=== PATIENT | male | born 1935 | race Caucasian/White ===

== ENCOUNTER 2016-12-29 16:53 | Observation (INO) | payer MEDICARE, OTHER ==
[2016-12-29 17:22] LABS: BASOPHILS 0.5 % (0.0-2.0); EOSINOPHILS 3.2 % (0.0-6.0); EOSINOPHILS# 0.2 X 10^3uL (0.0-0.4); HEMATOCRIT 46.2 % (42.0-54.0); HEMOGLOBIN 16.3 g/dL (14.0-18.0); LYMPHOCYTES 31.7 % (20.0-40.0); LYMPHOCYTES# 2.4 X 10^3uL (0.8-3.8); MEAN CELL VOLUME 94.2 fL (80.0-100.0); MEAN CORPUS. HGB CONCENTRATION 35.2 g/dL (32.0-36.0); MEAN CORPUSCULAR HEMOGLOBIN 33.2 pg (29.0-35.0); MEAN PLATELET VOLUME 8.9 fL (7.4-10.4); MONOCYTES 7.6 % (2.0-10.0); MONOCYTES# 0.6 X 10^3uL (0.2-1.0); NEUTROPHILS# 4.5 X 10^3uL (2.6-6.7); PLATELET COUNT 195 X 10^3uL (130-440); RED BLOOD COUNT 4.91 X 10^6uL (4.20-6.10); RED CELL DISTRIBUTION WIDTH 13.6 % (11.5-14.5); WHITE BLOOD COUNT 7.7 X 10^3uL (3.9-10.7)
[2016-12-29 17:33] LABS: A/G RATIO 1.4; ALBUMIN 4.6 g/dL (3.5-5.0); ALKALINE PHOSPHATASE 88 U/L (38-126); ALT 52 U/L (21-72); AST 36 U/L (17-59); BILIRUBIN, TOTAL 1.2 mg/dL (0.2-1.3); BLOOD UREA NITROGEN 21 mg/dL (9-20); CALCIUM 10.2 mg/dL (8.4-10.2); CHLORIDE 101 mmol/L (98-107); GLUCOSE 142 mg/dL (70-100); POTASSIUM 3.6 mmol/L (3.5-5.1); SODIUM 138 mmol/L (137-145); TOTAL PROTEIN 7.9 g/dL (6.3-8.2)
[2016-12-29 17:46] LABS: TROPONIN I < 0.012 ng/mL (0.00-0.034)
--- NOTE | 2016-12-29 18:31 | CT REPORT ---
HISTORY: Trauma COMPARISON: None. TECHNIQUE: Axial non-contrast images obtained from skull vertex through foramen magnum. Dose reduction technique was utilized. FINDINGS: BRAIN: There is age related atrophy and decreased attenuation in the periventricular white matter consistent with chronic small vessel ischemic change. No acute intracranial hemorrhage. No mass effect or hyd rocephalus. There is no CT evidence of infarction. BONES AND EXTRACRANIAL SOFT TISSUES: The orbits are unremarkable. The paranasal sinuses and mastoid air cells are clear. The calvarium is intact. IMPRESSION: 1. No acute intracranial abnormality. 2. Age related atrophy and sequela of chronic microvascular ischemia. Final Electronic Signature: This report was electronically signed by Tenzin Guevara MD on 12/29/2016 6:29 PM. bernardo /
[2016-12-29] MEDS ORDERED: ONDANSETRON HCL 4 MG/2 ML VIAL ONE ×2 (18:49→23:18)
[2016-12-29] MEDS ORDERED: NORMAL SALINE 1,000 ML IV ONE (18:50)
[2016-12-29] MEDS ORDERED: POLYETHYLENE GLYCOL 3350 17 GM POWD.PACK PO PRN (21:52)
[2016-12-29] MEDS ORDERED: HOME MEDICATION LIST NEEDED 1 EA EACH MISC ONE (21:52)
[2016-12-29] MEDS ORDERED: ACETAMINOPHEN 325 MG TABLET PO PRN (21:52)
[2016-12-29] MEDS ORDERED: MAG-AL PLUS XS SUSP 30 ML UDC PO PRN (21:52)
--- NOTE | 2016-12-29 22:21 | ER NURSING DOCUMENTATION ---
Nurse's Notes [facility] Name:Jairo Pederson Jr Age:81 yrs Sex:Male :1935 Arrival Date:12/29/2016 Time:16:53 Bed3 Private MD:Bhavin Davis Diagnosis:Dizziness - Vertigo Presentation: 12/29 17:00 Presenting complaint: Patient states: Sudden onset of nausea and vomiting. Transition lp of care: Home. Notified ED Physician of Dr. Harris notified. 17:00 Acuity: BLAYNE 3 lp 17:00 Method Of Arrival: EMS: 410 lp Triage Assessment: 19:49 General: Appears in no apparent distress, Behavior is appropriate for age. GI: Reports. bw2 Historical: - Allergies: No known drug Allergies; No known drug Allergies; - Home Meds: 1. paroxetine HCl oral 2. levothyroxine oral 3. Vytorin 10-10 oral - PMHx: HYPERTENSION; HIGH CHOLESTEROL; HYPOTHYROIDISM; DEPRESSION; Facial Laceration (December 01, 2015); - PSHx: VASECTOMY; Open Heart Surgery; HERNIA REPAIR; SHOULDER SURGERY; Back Surgery; - Tetanus: < 10 years. - Ebola Screening: : Patient negative for fever greater than or equal to 101.5 degrees Fahrenheit, and additional compatible Ebola Virus Disease symptoms. Patient denies exposure to infectious person. Patient denies travel to an Ebola-affected area in the 21 days before illness onset. . - Immunization history: Pneumococcal vaccine is up to date, Flu Vaccine < 1 year. - Social history: Smoking status: Patient states was never smoker of tobacco. Screenin:48 Infectious Disease Risk None. Abuse screen: Denies threats or abuse. Nutritional bw2 screening: No deficits noted. Assessment: 19:47 See Triage Assessment done by same RN. Pain: Denies pain. GI: Abdomen is flat. bw2 Vital Signs: 17:18 Pulse 48; Resp 16; Temp 98.7; Pulse Ox 91% on R/A; lp 17:25 BP 149 / 60; Weight 74.84 kg; Height 5 ft. 11 in. (180.34 cm); lp 19:46 BP 133 / 60; Pulse 59; Resp 18; Temp 98; Pulse Ox 95% ; bw2 22:20 BP 128 / 62; Pulse 51; Resp 17; Pulse Ox 99% ; bw2 17:25 Body Mass Index 23.01 (74.84 kg, 180.34 cm) lp ED Course: 16:54 Patient arrived in ED. ama 16:54 Bhavin Davis is Private Physician. ama 17:00 Loli Marie RN is Primary Nurse. lp 17:01 Triage completed. lp 17:06 Silvestre Harris MD is Attending Physician. tl1 19:33 Angelo Hare MD is Admitting Physician. tl1 19:48 Valuables Remains with patient. bw2 Administered Medications: 17:45 Drug: NS 0.9% 500 ml; Route: IV; Rate: bolus; Site: right antecubital; lp 18:44 Follow up: Response: No adverse reaction; IV Status: Completed infusion; IV Intake: lp 500ml 18:42 Drug: Zofran 4 mg; Route: IVP; Infused Over: 2 mins; Site: right antecubital; lp 21:26 Follow up: Response: No adverse reaction bw2 Intake: 18:44 IV: 500ml; Total: 500ml. lp Outcome: 19:35 Decision to Admit by Provider. tl1 22:20 Admitted to Med/surg accompanied by nurse, via stretcher. bw2 22:20 Condition: good 22:20 Discharge Assessment: Patient awake, alert and oriented x 3. No cognitive and/or functional deficits noted. Patient verbalized understanding of disposition instructions. 22:20 Instructed on need to admit Demonstrated understanding of instructions. 22:20 Patient left the ED. bw2 Signatures: Loli Marie RN RN Unique Griffin Ricardo Rosa, Reg Reg Silvestre Garg MD MD tl1 Penny Rios bw2
[2016-12-29] MEDS: ONDANSETRON HCL 4 MG/2 ML VIAL IV PRN (23:14)
[2016-12-29] MEDS: NORMAL SALINE 1,000 ML IV SCH (23:14)
[2016-12-29] MEDS: MECLIZINE HCL 12.5 MG TABLET PO SCH (23:50)
[2016-12-30] MEDS: ONDANSETRON HCL 4 MG/2 ML VIAL IV PRN ×2 (03:48→10:23)
[2016-12-30] MEDS: NORMAL SALINE 1,000 ML IV SCH (04:03)
[2016-12-30 04:07] LABS: URINE MUCUS NONE SEEN (Up to 25%); URINE RBC NONE SEEN (0-5/hpf)
[2016-12-30 04:08] LABS: URINE APPEARANCE CLEAR; URINE BILIRUBIN NEGATIVE (NEGATIVE); URINE COLOR DARK YELLOW; URINE GLUCOSE NORMAL (NEGATIVE); URINE KETONE 10mg/dL (1+) (NEGATIVE); URINE LEUKOCYTE ESTERASE NEGATIVE (NEGATIVE); URINE NITRITE NEGATIVE (NEGATIVE); URINE PROTEIN NEGATIVE (NEG - TRACE); URINE UROBILINOGEN 0.2mg/dL (Normal) (NEG-1mg/dL)
[2016-12-30 04:09] LABS: URINE BACTERIA NONE SEEN (<10/hpf); URINE BLOOD NEGATIVE (NEGATIVE); URINE SPERM NONE SEEN; URINE SQUAMOUS EPITHELIAL CELL 0-5/hpf (<= 15/hpf); URINE WBC 0-4/hpf (0-4/hpf)
[2016-12-30] MEDS: LEVOTHYROXINE 100 MCG TABLET PO SCH (05:55)
[2016-12-30] MEDS: MECLIZINE HCL 12.5 MG TABLET PO SCH ×4 (05:55→22:53)
[2016-12-30 07:05] LABS: ALBUMIN 3.7 g/dL (3.5-5.0); ALKALINE PHOSPHATASE 52 U/L (38-126); ALT 48 U/L (21-72); AST 28 U/L (17-59); BILIRUBIN, TOTAL 1.2 mg/dL (0.2-1.3); BLOOD UREA NITROGEN 15 mg/dL (9-20); CALCIUM 9.2 mg/dL (8.4-10.2); CHLORIDE 104 mmol/L (98-107); GLUCOSE 105 mg/dL (70-100); POTASSIUM 4.2 mmol/L (3.5-5.1); SODIUM 140 mmol/L (137-145); TOTAL PROTEIN 6.7 g/dL (6.3-8.2)
[2016-12-30 07:32] LABS: BASOPHILS 0.1 % (0.0-2.0); EOSINOPHILS 0.4 % (0.0-6.0); HEMOGLOBIN 14.6 g/dL (14.0-18.0); LYMPHOCYTES 12.8 % (20.0-40.0); LYMPHOCYTES# 0.9 X 10^3uL (0.8-3.8); MEAN CELL VOLUME 94.5 fL (80.0-100.0); MEAN CORPUS. HGB CONCENTRATION 34.9 g/dL (32.0-36.0); MONOCYTES 6.1 % (2.0-10.0); MONOCYTES# 0.4 X 10^3uL (0.2-1.0); NEUTROPHILS 80.6 % (54.0-75.0); NEUTROPHILS# 5.8 X 10^3uL (2.6-6.7); PLATELET COUNT 145 X 10^3uL (130-440); RED BLOOD COUNT 4.44 X 10^6uL (4.20-6.10); RED CELL DISTRIBUTION WIDTH 13.7 % (11.5-14.5); WHITE BLOOD COUNT 7.1 X 10^3uL (3.9-10.7)
[2016-12-30] MEDS: MELOXICAM 7.5 MG TABLET PO SCH (08:26)
[2016-12-30] MEDS: PAROXETINE HCL 20 MG TABLET PO SCH (08:26)
[2016-12-30] MEDS ORDERED: LORazepam 2 MG/ML INJ IV PRN (11:10)
--- NOTE | 2016-12-30 11:23 | PROGRESS NOTE: IM APSO ---
Assessment and Plan - Date of Encounter Date of Encounter: 12/30/16 (1) Vertigo Status: Acute Assessment and plan: Etiology unclear. Likely benign positional vertigo considering intermittent nature and movement/positional component. Less likely viral labyrinthitis without recent URI and with waxing and waning intensity. Likewise, less likely CVA considering negative neurologic examination and intermittent nature of symptoms. CT scan negative. If not improving, may need MRI scan tomorrow morning. Will start aspirin at this time. Continue meclizine but increase to 25 milligrams. Zofran. Add low-dose lorazepam IV considering refractory nausea and vomitingand poor tolerance of Phenergan. Continue neurologic checks. Physical therapy in the morning. Current Visit: Yes (2) Nausea and vomiting Status: Acute Assessment and plan: See above. Current Visit: Yes (3) Mental status change Status: Acute Assessment and plan: Last night. In association with Phenergan use. Resolved as of this morning. No focal neurologic changes. Laboratory studies relatively unremarkable. Follow clinically. Current Visit: Yes (4) Hypertension, benign Status: Chronic Assessment and plan: Holding metoprolol for now considering bradycardia and dizziness issues. Current Visit: Yes (5) Hypercholesterolemia Status: Chronic Current Visit: Yes (6) Hypothyroidism (acquired) Status: Chronic Current Visit: Yes (7) Anxiety Status: Chronic Assessment and plan: At baseline. Approximately. Low-dose lorazepam considering vertigo, nausea, vomiting. Watch for sedation and confusion. Current Visit: Yes (8) DVT prophylaxis Status: Acute Assessment and plan: Lovenox. Current Visit: Yes - Time Spent With Patient Total time spent with greater than 50% in coordination of care (as documented) at patient's floor/unit and/or counseling patient: 25 - 35 minutes Estimated anticipated discharge: Tomorrow. IM: PN Subjective General: anxiety (Baseline), no fever, no chills HEENT: other (vertigo with position change, sitting (better)), no visual changes , no headache Cardiovascular: dizziness, no chest pain, no palpitations Respiratory: no cough, no SOB Gastrointestinal: nausea, vomiting, no abdominal pain Genitourinary: dysuria (mild) Musculoskeletal: weakness (bilateral shoulders, baseline), no pain Integumentary: no rashes Neurological: limb weakness (bilateral shoulders, baseline), no headache, no numbness, no tingling IM: PN Objective Exam - I&O/Vital Signs I&O: Intake & Output 12/29/16 12/30/16 12/30/16 21:59 05:59 13:59 Intake Total 900 Output Total 400 Balance 500 Weight 73.5 kg Intake: IV 900 Right Antecubital 900 Output: Urine 400 Other: Voiding Method Urinal Urinal # Voids 1 Vital Signs: Last Vital Signs Temp 36.6 C 12/30/16 10:00 Pulse 53 L 12/30/16 10:00 Resp 12 12/30/16 10:00 BP 141/74 12/30/16 10:00 Pulse Ox 94 12/30/16 11:06 Oxygen Flow Rate 1 Oxygen Delivery Method Nasal Cannula - Constitutional General appearance: Present: thin. Absent: acute distress - Head Head exam: Present: atraumatic - Eye Eye exam: Present: EOMI, PERRL. Absent: scleral icterus - ENT ENT exam: Present: mucous membranes dry - Neck Neck exam: Present: full ROM - Respiratory Respiratory exam: Present: decreased breath sounds (mild), CTAB. Absent: rales , rhonchi, wheezes - Cardiovascular Cardiovascular exam: Present: bradycardia (mild), systolic murmur. Absent: S3, S4 - GI/Abdominal GI/Abdominal exam: Present: normal bowel sounds, soft. Absent: organomegaly, rebound, rigid, tenderness - Neurological Exam Neurological exam: Present: motor sensory deficit (bilateral shoulders weak ( baseline)), oriented X3, other (light touch intact, vertigo with sitting (no nystagmus)) - Psychiatric Psychiatric exam: Absent: anxious, depressed - Skin Skin exam: Absent: rash - Allied Health Notes Allied health notes reviewed: nursing - Lab Labs: Laboratory Last Values WBC 7.1 X 10^3uL (3.9-10.7) 12/30/16 05:00 RBC 4.44 X 10^6uL (4.20-6.10) 12/30/16 05:00 Hgb 14.6 g/dL (14.0-18.0) 12/30/16 05:00 Hct 42.0 % (42.0-54.0) 12/30/16 05:00 MCV 94.5 fL (80.0-100.0) 12/30/16 05:00 MCH 33.0 pg (29.0-35.0) 12/30/16 05:00 MCHC 34.9 g/dL (32.0-36.0) 12/30/16 05:00 RDW 13.7 % (11.5-14.5) 12/30/16 05:00 Plt Count 145 X 10^3uL (130-440) 12/30/16 05:00 MPV 9.0 fL (7.4-10.4) 12/30/16 05:00 Neutrophils % 80.6 % (54.0-75.0) H 12/30/16 05:00 Lymphocytes % 12.8 % (20.0-40.0) L 12/30/16 05:00 Eosinophils % 0.4 % (0.0-6.0) 12/30/16 05:00 Basophils % 0.1 % (0.0-2.0) 12/30/16 05:00 Neutrophils # 5.8 X 10^3uL (2.6-6.7) 12/30/16 05:00 Lymphocytes # 0.9 X 10^3uL (0.8-3.8) 12/30/16 05:00 Monocytes 6.1 % (2.0-10.0) 12/30/16 05:00 Monocytes # 0.4 X 10^3uL (0.2-1.0) 12/30/16 05:00 Eosinophils # 0.0 X 10^3uL (0.0-0.4) 12/30/16 05:00 Basophils # 0.0 X 10^3uL (0.0-0.1) 12/30/16 05:00 PT 14.8 sec (13.0-16.6) 12/29/16 14:14 D-Dimer 325 ng/mL H* 12/29/16 14:14 Sodium 140 mmol/L (137-145) 12/30/16 05:00 Potassium 4.2 mmol/L (3.5-5.1) 12/30/16 05:00 Chloride 104 mmol/L (98-107) 12/30/16 05:00 Carbon Dioxide 26 mmol/L (22-30) 12/30/16 05:00 BUN 15 mg/dL (9-20) 12/30/16 05:00 Creatinine 0.7 mg/dL (0.7-1.3) 12/30/16 05:00 GFR Calculation Not Reportable 12/30/16 05:00 Glucose 105 mg/dL (70-100) H 12/30/16 05:00 Calcium 9.2 mg/dL (8.4-10.2) 12/30/16 05:00 Total Bilirubin 1.2 mg/dL (0.2-1.3) 12/30/16 05:00 Direct Bilirubin 0.0 mg/dL (0.0-0.4) 12/30/16 05:00 AST 28 U/L (17-59) 12/30/16 05:00 ALT 48 U/L (21-72) 12/30/16 05:00 Alkaline Phosphatase 52 U/L (38-126) 12/30/16 05:00 Troponin I < 0.012 ng/mL (0.00-0.034) 12/29/16 14:14 Total Protein 6.7 g/dL (6.3-8.2) 12/30/16 05:00 Albumin 3.7 g/dL (3.5-5.0) 12/30/16 05:00 Albumin/Globulin Ratio 1.4 12/29/16 14:14 Urine Color Dark yellow A 12/30/16 03:39 Urine Appearance Clear 12/30/16 03:39 Urine pH 7.0 (5-7) 12/30/16 03:39 Ur Specific Carlyle 1.020 (0.001-1.035) 12/30/16 03:39 Urine Protein Negative (NEG - TRACE) 12/30/16 03:39 Urine Ketones 10mg/dl (1+) (NEGATIVE) A 12/30/16 03:39 Urine Blood Negative (NEGATIVE) 12/30/16 03:39 Urine Nitrate Negative (NEGATIVE) 12/30/16 03:39 Urine Bilirubin Negative (NEGATIVE) 12/30/16 03:39 Urine Urobilinogen 0.2mg/dl (normal) (NEG-1mg/dL) 12/30/16 03:39 Ur Leukocyte Esterase Negative (NEGATIVE) 12/30/16 03:39 Urine RBC None seen (0-5/hpf) 12/30/16 03:39 Urine WBC 0-4/hpf (0-4/hpf) 12/30/16 03:39 Ur Squamous Epith Cells 0-5/hpf (<= 15/hpf) 12/30/16 03:39 Urine Bacteria None seen (<10/hpf) 12/30/16 03:39 Urine Mucus None seen (Up to 25%) 12/30/16 03:39 Urine Sperm None seen 12/30/16 03:39 Urine Glucose Normal (NEGATIVE) 12/30/16 03:39 Quality Questions - VTE Prophylaxis Assessment VTE Present on Admission?: No Patient at risk for venous thromboembolism?: Yes VTE Risk Level: High Risk Pharmaceutical VTE prophylaxis contraindication reason: N/A- VTE prophylaxsis ordered Mechanical VTE prophylaxis contraindication reason: not indicated (2) Nausea and vomiting Qualifiers: Vomiting type: unspecified Vomiting Intractability: intractable Qualified Code(s): R11.2 - Nausea with vomiting, unspecified (3) Mental status change Qualifiers: Altered mental status type: delirium Qualified Code(s): R41.0 - Disorientation, unspecified
[2016-12-30] MEDS ORDERED: NORMAL SALINE 1,000 ML IV SCH (11:30)
[2016-12-30] MEDS: ENOXAPARIN SODIUM 40 MG/0.4 ML SYR SUBCUT SCH (12:45)
[2016-12-30] MEDS ORDERED: ATORVASTATIN CALCIUM 10 MG TABLET PO SCH (21:00)
[2016-12-30] MEDS: ATORVASTATIN CALCIUM 10 MG TABLET PO SCH (21:08)
[2016-12-30] MEDS ORDERED: MECLIZINE HCL 12.5 MG TABLET PO ONE (23:04)
[2016-12-31] MEDS: LEVOTHYROXINE 100 MCG TABLET PO SCH (06:16)
[2016-12-31] MEDS: MECLIZINE HCL 12.5 MG TABLET PO SCH ×4 (06:16→22:38)
[2016-12-31] MEDS ORDERED: MECLIZINE HCL 12.5 MG TABLET PO ONE (06:22)
[2016-12-31] MEDS: ENOXAPARIN SODIUM 40 MG/0.4 ML SYR SUBCUT SCH (08:58)
[2016-12-31] MEDS: PAROXETINE HCL 20 MG TABLET PO SCH (08:58)
[2016-12-31] MEDS: MELOXICAM 7.5 MG TABLET PO SCH (08:58)
[2016-12-31] MEDS ORDERED: MELOXICAM 7.5 MG TABLET PO SCH (09:00)
[2016-12-31] MEDS ORDERED: PAROXETINE HCL 20 MG TABLET PO SCH (09:00)
[2016-12-31] MEDS ORDERED: LEVOTHYROXINE 100 MCG TABLET PO SCH (09:00)
--- NOTE | 2016-12-31 19:26 | PROGRESS NOTE: IM APSO ---
Assessment and Plan - Date of Encounter Date of Encounter: 12/31/16 (1) Nausea and vomiting Status: Acute Assessment and plan: This is now resolved. Current Visit: Yes (2) Vertigo Status: Acute Assessment and plan: This 81-year-old gentleman who lives alone had sudden onset of vertigo with nausea and vomiting 2 days ago when he suddenly stood up. He is much better today, but he still has some significant unsteadiness with turns while ambulating according to the physical therapist. She felt that he was not safe to go home yet and should be given another day. I agree and am hopeful that by tomorrow he will be stable enough to ambulate safely with a walker. I advanced his diet. Current Visit: Yes - Time Spent With Patient Total time spent with greater than 50% in coordination of care (as documented) at patient's floor/unit and/or counseling patient: Estimated anticipated discharge: Tomorrow. IM: PN Subjective General: anxiety (Baseline), no fever, no chills HEENT: no visual changes, no headache Cardiovascular: dizziness (only when turning while ambulating), no chest pain, no palpitations Respiratory: no cough, no SOB Gastrointestinal: no abdominal pain, no nausea, no vomiting Musculoskeletal: weakness (bilateral shoulders, baseline), no pain Integumentary: no rashes Neurological: limb weakness (bilateral shoulders, baseline), no headache, no numbness, no tingling IM: PN Objective Exam - I&O/Vital Signs I&O: Intake & Output 12/31/16 12/31/16 12/31/16 05:59 13:59 21:59 Intake Total 1320 350 Output Total 525 Balance 795 350 Weight 74.5 kg Intake: IV 970 Right Antecubital 970 Oral 350 350 Output: Urine 525 Other: Urine Appearance Clear Clear Urine Color Yellow Yellow Voiding Method Urinal Urinal # Voids 2 Vital Signs: Last Vital Signs Temp 36.9 C 12/31/16 15:00 Pulse 56 L 12/31/16 15:00 Resp 12 12/31/16 15:00 BP 144/75 12/31/16 15:00 Pulse Ox 95 12/31/16 15:00 Oxygen Flow Rate 1 Oxygen Delivery Method Nasal Cannula - Constitutional General appearance: Present: average body habitus. Absent: acute distress - Head Head exam: Present: atraumatic - Eye Eye exam: Present: EOMI, PERRL. Absent: scleral icterus - ENT ENT exam: Present: mucous membranes dry, mucous membranes moist - Neck Neck exam: Present: full ROM - Respiratory Respiratory exam: Present: decreased breath sounds (mild), CTAB. Absent: rales , rhonchi, wheezes - Cardiovascular Cardiovascular exam: Present: bradycardia (mild), systolic murmur. Absent: S3, S4 - GI/Abdominal GI/Abdominal exam: Present: normal bowel sounds, soft. Absent: organomegaly, rebound, rigid, tenderness - Extremities Exam Extremities exam: Absent: edema - Neurological Exam Neurological exam: Present: motor sensory deficit (bilateral shoulders weak ( baseline)), oriented X3, other (No vertigo with sitting (no nystagmus)) - Psychiatric Psychiatric exam: Absent: anxious, depressed - Skin Skin exam: Absent: rash - Allied Health Notes Allied health notes reviewed: nursing - Lab Labs: Laboratory Last Values WBC 7.1 X 10^3uL (3.9-10.7) 12/30/16 05:00 RBC 4.44 X 10^6uL (4.20-6.10) 12/30/16 05:00 Hgb 14.6 g/dL (14.0-18.0) 12/30/16 05:00 Hct 42.0 % (42.0-54.0) 12/30/16 05:00 MCV 94.5 fL (80.0-100.0) 12/30/16 05:00 MCH 33.0 pg (29.0-35.0) 12/30/16 05:00 MCHC 34.9 g/dL (32.0-36.0) 12/30/16 05:00 RDW 13.7 % (11.5-14.5) 12/30/16 05:00 Plt Count 145 X 10^3uL (130-440) 12/30/16 05:00 MPV 9.0 fL (7.4-10.4) 12/30/16 05:00 Neutrophils % 80.6 % (54.0-75.0) H 12/30/16 05:00 Lymphocytes % 12.8 % (20.0-40.0) L 12/30/16 05:00 Eosinophils % 0.4 % (0.0-6.0) 12/30/16 05:00 Basophils % 0.1 % (0.0-2.0) 12/30/16 05:00 Neutrophils # 5.8 X 10^3uL (2.6-6.7) 12/30/16 05:00 Lymphocytes # 0.9 X 10^3uL (0.8-3.8) 12/30/16 05:00 Monocytes 6.1 % (2.0-10.0) 12/30/16 05:00 Monocytes # 0.4 X 10^3uL (0.2-1.0) 12/30/16 05:00 Eosinophils # 0.0 X 10^3uL (0.0-0.4) 12/30/16 05:00 Basophils # 0.0 X 10^3uL (0.0-0.1) 12/30/16 05:00 PT 14.8 sec (13.0-16.6) 12/29/16 14:14 D-Dimer 325 ng/mL H* 12/29/16 14:14 Sodium 140 mmol/L (137-145) 12/30/16 05:00 Potassium 4.2 mmol/L (3.5-5.1) 12/30/16 05:00 Chloride 104 mmol/L (98-107) 12/30/16 05:00 Carbon Dioxide 26 mmol/L (22-30) 12/30/16 05:00 BUN 15 mg/dL (9-20) 12/30/16 05:00 Creatinine 0.7 mg/dL (0.7-1.3) 12/30/16 05:00 GFR Calculation Not Reportable 12/30/16 05:00 Glucose 105 mg/dL (70-100) H 12/30/16 05:00 Calcium 9.2 mg/dL (8.4-10.2) 12/30/16 05:00 Total Bilirubin 1.2 mg/dL (0.2-1.3) 12/30/16 05:00 Direct Bilirubin 0.0 mg/dL (0.0-0.4) 12/30/16 05:00 AST 28 U/L (17-59) 12/30/16 05:00 ALT 48 U/L (21-72) 12/30/16 05:00 Alkaline Phosphatase 52 U/L (38-126) 12/30/16 05:00 Troponin I < 0.012 ng/mL (0.00-0.034) 12/29/16 14:14 Total Protein 6.7 g/dL (6.3-8.2) 12/30/16 05:00 Albumin 3.7 g/dL (3.5-5.0) 12/30/16 05:00 Albumin/Globulin Ratio 1.4 12/29/16 14:14 Urine Color Dark yellow A 12/30/16 03:39 Urine Appearance Clear 12/30/16 03:39 Urine pH 7.0 (5-7) 12/30/16 03:39 Ur Specific Malcolm 1.020 (0.001-1.035) 12/30/16 03:39 Urine Protein Negative (NEG - TRACE) 12/30/16 03:39 Urine Ketones 10mg/dl (1+) (NEGATIVE) A 12/30/16 03:39 Urine Blood Negative (NEGATIVE) 12/30/16 03:39 Urine Nitrate Negative (NEGATIVE) 12/30/16 03:39 Urine Bilirubin Negative (NEGATIVE) 12/30/16 03:39 Urine Urobilinogen 0.2mg/dl (normal) (NEG-1mg/dL) 12/30/16 03:39 Ur Leukocyte Esterase Negative (NEGATIVE) 12/30/16 03:39 Urine RBC None seen (0-5/hpf) 12/30/16 03:39 Urine WBC 0-4/hpf (0-4/hpf) 12/30/16 03:39 Ur Squamous Epith Cells 0-5/hpf (<= 15/hpf) 12/30/16 03:39 Urine Bacteria None seen (<10/hpf) 12/30/16 03:39 Urine Mucus None seen (Up to 25%) 12/30/16 03:39 Urine Sperm None seen 12/30/16 03:39 Urine Glucose Normal (NEGATIVE) 12/30/16 03:39 (1) Nausea and vomiting Qualifiers: Vomiting type: unspecified Vomiting Intractability: non-intractable Qualified Code(s): R11.2 - Nausea with vomiting, unspecified
[2016-12-31] MEDS: ATORVASTATIN CALCIUM 10 MG TABLET PO SCH (21:16)
--- NOTE | 2016-12-31 22:21 | ER PHYSICIAN DOCUMENTATION ---
Physician Documentation [facility] [place] Name:Jairo Pederson Jr Age:81 yrs Sex:Male :1935 Arrival Date:12/29/2016 Time:16:53 Bed3 Private MD:Bhavin Davis ED, Tom Disposition: 12/31 13:27 Chart complete. tl1 Disposition: 12/29/16 19:35 Admit ordered for Angelo Hare. Preliminary diagnosis is Dizziness - Vertigo. - Bed requested for Medical/Surgical. - Condition is Fair. - Problem is new. - Symptoms have improved. 23 HR OBS Yes HPI: 12/29 17:54 This 81 yrs old Male presents to ER via EMS with complaints of Dizziness, tl1 Nausea/Vomiting. 17:54 The patient presents with sense of spinning. Onset: The symptom(s)/episode tl1 began/occurred suddenly, 2 hour(s) ago. Context: occurred at home, occurred while the patient was sitting, just prior to the episode the patient experienced no apparent symptoms. Associated signs and symptoms: Pertinent positives: nausea, vomiting, Pertinent negatives: chest pain, combativeness, confusion, focal weakness, headache, palpitations, shortness of breath, syncope. Severity of symptoms: At their worst the symptoms were moderate in the emergency department the symptoms are unchanged. The patient has not experienced similar symptoms in the past. Historical: - Allergies: No known drug Allergies; No known drug Allergies; - Home Meds: 1. paroxetine HCl oral 2. levothyroxine oral 3. Vytorin 10-10 oral - PMHx: HYPERTENSION; HIGH CHOLESTEROL; HYPOTHYROIDISM; DEPRESSION; Facial Laceration (December 01, 2015); - PSHx: VASECTOMY; Open Heart Surgery; HERNIA REPAIR; SHOULDER SURGERY; Back Surgery; - Tetanus: < 10 years. - Ebola Screening: : Patient negative for fever greater than or equal to 101.5 degrees Fahrenheit, and additional compatible Ebola Virus Disease symptoms. Patient denies exposure to infectious person. Patient denies travel to an Ebola-affected area in the 21 days before illness onset. . - Immunization history: Pneumococcal vaccine is up to date, Flu Vaccine < 1 year. - Social history: Smoking status: Patient states was never smoker of tobacco. ROS: 17:54 Neuro: Positive for dizziness, Negative for altered mental status, headache, numbness, tl1 syncope. 17:54 All other systems are negative. Exam: 17:54 Constitutional: The patient appears alert, awake, well developed, well groomed, well tl1 nourished, emaciated, frail, in obvious distress, mildly distressed, restless, uncomfortable. 17:54 Head/face: Exam is negative for acute changes. 17:54 Eyes: Periorbital structures: appear normal, Pupils: no acute changes, equal, round, and reactive to light and accomodation, Extraocular movements: intact throughout, Conjunctiva: no acute changes, Nystagmus: is not appreciated. 17:54 ENT: Ear canal(s): are normal, TM's: are normal. 17:54 Neck: External neck: is normal, C-spine: vertebral tenderness, is not appreciated, ROM/movement: is normal, is supple. 17:54 Chest/axilla: Palpation: is normal. 17:54 Cardiovascular: Rate: normal, Rhythm: regular, Heart sounds: normal. 17:54 Respiratory: the patient does not display signs of respiratory distress, Respirations: normal, Breath sounds: are normal. 17:54 Abdomen/GI: Inspection: abdomen appears normal, Palpation: abdomen is soft and non-tender. 17:54 Back: CVA tenderness, is absent. 17:54 Musculoskeletal/extremity: Exam is negative for acute changes. 17:54 Skin: Exam negative for acute changes. 17:54 Neuro: Orientation: is normal, Mentation: is normal, Memory: is normal, Cranial nerves: grossly normal, Cerebellar function: normal finger to nose testing, Motor: moves all fours, Sensation: no obvious gross deficits, Gait: not tested. Vital Signs: 17:18 Pulse 48; Resp 16; Temp 98.7; Pulse Ox 91% on R/A; lp 17:25 BP 149 / 60; Weight 74.84 kg; Height 5 ft. 11 in. (180.34 cm); lp 19:46 BP 133 / 60; Pulse 59; Resp 18; Temp 98; Pulse Ox 95% ; bw2 22:20 BP 128 / 62; Pulse 51; Resp 17; Pulse Ox 99% ; bw2 17:25 Body Mass Index 23.01 (74.84 kg, 180.34 cm) lp MDM: 17:06 Patient medically screened. tl1 17:08 ECG:. tl1 19:00 Differential diagnosis: CVA, generalized weakness, GI bleed, hyperventilation, tl1 idiopathic dizziness, near-syncope, sepsis, TIA, vertigo. Data reviewed: vital signs, nurses notes, lab test result(s), EKG, and as a result, I will admit patient. Counseling: I had a detailed discussion with the patient and/or guardian regarding: the historical points, exam findings, and any diagnostic results supporting the discharge/admit diagnosis, lab results, radiology results, the need for further work-up and treatment in the hospital. Medication response: The patient's symptoms have improved, Response to treatment: the patient's symptoms have markedly improved after treatment. Physician consultation: Beena Vanegas MD was called at 18:30, was contacted at 18:30, regarding admission, to the floor. 12/29 17:25 Order name: CBC AUTO DIF, MDIF/RMOR IF IND; Complete Time: 18:44 EDMS 12/29 18:42 Interpretation: WHITE BLOOD COUNT 7.7; HEMOGLOBIN 16.3; HEMATOCRIT 46.2; PLATELET COUNT tl1 195. 12/29 17:46 Order name: COMPREHENSIVE METABOLIC PANEL; Complete Time: 18:44 EDMS 12/29 18:42 Interpretation: SODIUM 138; POTASSIUM 3.6; CHLORIDE 101; CARBON DIOXIDE 24; GLUCOSE tl1 142; BLOOD UREA NITROGEN 21; CREATININE 0.8; CALCIUM 10.2. 12/29 17:47 Order name: TROPONIN I; Complete Time: 18:44 EDMS 12/29 18:42 Interpretation: Normal: TROPONIN I < 0.012. 1 12/29 17:56 Order name: PROTIME; Complete Time: 18:44 EDMS 12/29 18:42 Interpretation: Normal: PROTIME 14.8. 1 12/29 17:56 Order name: DDIMER; Complete Time: 18:44 EDMS 12/29 18:42 Interpretation: Abnormal: DDIMER 325. 12/30 04:10 Order name: UA W/ MICRO -CULTURE IF IND; Complete Time: 13:28 EDMS 12/30 07:11 Order name: BASIC METABOLIC PANEL; Complete Time: 13:28 EDMS 12/30 07:11 Order name: HEPATIC PANEL; Complete Time: 13:28 EDNJ 12/30 08:00 Order name: CBC AUTO DIF, MDIF/RMOR IF IND; Complete Time: 13:28 EDMS 12/29 18:32 Order name: CAT SCAN; HEAD W/O CON [id number]; Complete Time: 18:44 EDMS 12/29 18:43 Interpretation: NAD. SEE NOTE. Age related atrophy and chronic microvascular ischemia. tl1 12/29 17:09 Order name: EKG - 12 Lead; Complete Time: 18:41 tl1 EC:08 Rate is 50 beats/min. Rhythm is regular, Normal Sinus Rhythm. QRS [place] is Normal. [place] tl1 interval is normal at 145 msec. QRS interval is normal at 125 msec. QT interval is normal at 483 msec. No Q waves. T waves are Normal. No ST changes noted. Clinical impression: NSR, with LAE, NSIVCD. Interpreted by me. Reviewed by me. Dispensed Medications: 17:45 Drug: NS 0.9% 500 ml; Route: IV; Rate: bolus; Site: right antecubital; lp 18:44 Follow up: Response: No adverse reaction; IV Status: Completed infusion; IV Intake: lp 500ml 18:42 Drug: Zofran 4 mg; Route: IVP; Infused Over: 2 mins; Site: right antecubital; lp 21:26 Follow up: Response: No adverse reaction bw2 Signatures: Loli Marie RN RN lp Leigh, Tom, MD MD tl1 Penny Rios bw2
[2017-01-01] MEDS: LEVOTHYROXINE 100 MCG TABLET PO SCH (05:51)
[2017-01-01] MEDS: MECLIZINE HCL 12.5 MG TABLET PO SCH ×2 (06:34→10:55)
--- NOTE | 2017-01-01 08:43 | DC SUMMARY: Gen Surgery Note ---
Discharge Summary: Surg/OB Provider: Date of Admission: 12/29/16 Admitting Provider: MICHAEL MA MD Attending Provider: KANCHAN RUGGIERO MD Discharging Provider: KANCHAN RUGGIERO MD Primary Care Provider: Discharge Date: 01/01/17 - Diagnosis (1) Nausea and vomiting Status: Acute Qualifiers: Vomiting type: unspecified Vomiting Intractability: non-intractable Qualified Code(s): R11.2 - Nausea with vomiting, unspecified (2) Vertigo Status: Acute (3) Hypothyroidism (acquired) Status: Chronic Hospital Course: Mr. BARTLETT is a 81 year old male her developed severe vertigo with nausea on 12/29. this defervesced nicely over a three days with the help of some meclizine and Apley maneuvers I had hoped to discharge him yesterday, but the physical therapist felt like he was too high of a fall risk since he was quite unsteady with turns. He should be able to go home safely today after his physical therapy evaluation. He has no further dizziness with any position changes and no nystagmus. His nausea and vomiting resolved after 48 hours and he is tolerating a regular diet. I will send him home on his usual medic with the addition of meclizine when necessary. During the hospitalization he was noted to have some hypoxia on room air while sleeping, but did not have Spells. I have arranged for a nocturnal pulse ox through [facility] on 01/05/17 then follow up with his PCP on 01/07/17. Discharge - Patient/Caregiver Discharge Instructions Activity Level: as tolerated Diet: regular Additional Instructions: supervisor nutritional yeast the nocturnal pulse ox at [facility] late afternoon on 01/05 and return it in the morning on 01/06. Follow up: YEN FABIAN [Primary Care Provider] - 01/07/17 11:00 am Overall discharge status: patient is back to baseline Disposition: HOME, SELF-CARE Gen Surgery: Discharge Exam - Latest Vital Signs and I&O Latest Vital Signs/I&O: Vital Signs Temp 36.8 C 01/01/17 06:14 Pulse 81 01/01/17 06:14 Resp 21 01/01/17 06:14 BP 146/72 01/01/17 06:14 Pulse Ox 94 01/01/17 06:14 Intake & Output 12/31/16 01/01/1701/01/17 17:59 05:59 17:59 Intake Total 860 200 Output Total 1050 400 Balance -190 -200 Weight 74.5 kg 73.5 kg Intake: Oral 860 200 Output: Urine 1050 400 Other: Urine Appearance Clear Clear Urine Color Yellow Yellow Voiding Method Urinal Urinal # Voids 2 - Exam General physical exam: well developed, well nourished, no distress Eye Exam: Present: PERRL, normal ocular movement Respiratory exam: clear to auscultation Neurologic: normal coordination Psychiatric: Present: oriented to person, oriented to place, oriented to time - Allied Health Notes Allied health notes reviewed: nursing, PT Discharge Summary Data - Medication History Medication History: Home Medications Atorvastatin Calcium [Lipitor*] 20 mg PO HS 12/30/16 Levothyroxine [Synthroid*] 100 mcg PO DAILY 12/30/16 Meloxicam [Meloxicam*] 15 mg PO DAILY 12/30/16 Paroxetine HCl [Paroxetine HCl*] 20 mg PO DAILY 12/30/16 Acetaminophen [Tylenol*] 650 mg PO Q6H PRN 01/01/17 Meclizine HCl [Antivert*] 25 mg PO Q6H tab 01/01/17 Meloxicam [Meloxicam*] 15 mg PO DAILY 01/01/17 Inpatient Medications 12/29/16 22:45 Ondansetron HCl [Zofran] 4 mg IV Q6H PRN 12/30/16 11:10 LORazepam [Ativan] 0.5 mg IV Q4H PRN Meclizine HCl [Antivert] 25 mg PO Q6H 12/30/16 11:30 Enoxaparin Sodium [Lovenox] 40 mg SUBCUT DAILY Normal Saline [Sodium Chloride 0.9% 1000 ml] 1,000 ml IV CONT aspirin EC [Ecotrin] 325 mg PO DAILY 12/30/16 21:00 Atorvastatin Calcium [Lipitor] 20 mg PO HS Procedures and tests throughout hospitalization: Pending Orders 12/29/16 22:45 Ondansetron HCl [Zofran] 4 mg IV Q6H PRN 12/30/16 11:10 LORazepam [Ativan] 0.5 mg IV Q4H PRN Meclizine HCl [Antivert] 25 mg PO Q6H 12/30/16 11:30 Enoxaparin Sodium [Lovenox] 40 mg SUBCUT DAILY Normal Saline [Sodium Chloride 0.9% 1000 ml] 1,000 ml IV CONT aspirin EC [Ecotrin] 325 mg PO DAILY 12/30/16 21:00 Atorvastatin Calcium [Lipitor] 20 mg PO HS 12/31/16 12:12 Physical Therapy Plan of Care [PT] Routine 12/31/16 Breakfast reg [Regular] [DIET] 01/01/17 08:34 Remove Peripheral IV ONCE 01/01/17 13:00 Discharge ONCE
[2017-01-01] MEDS: ENOXAPARIN SODIUM 40 MG/0.4 ML SYR SUBCUT SCH (10:01)
[2017-01-01] MEDS: MELOXICAM 7.5 MG TABLET PO SCH (10:02)
[2017-01-01] MEDS: PAROXETINE HCL 20 MG TABLET PO SCH (10:03)
[2017-01-01 11:47] VITALS: BP 151/78; PULSE 61; RESP 15; TEMP 98.2; O2SAT 91
== END 2017-01-01 13:00 | disposition home or self-care (01) ==
LOC: ER 16:53 → IN 22:13
PROVIDERS: ADMIT Family Medicine; ATTEND Family Medicine
DX: R42 Dizziness and giddiness (principal); R11.2 Nausea with vomiting, unspecified; E03.9 Hypothyroidism, unspecified; I10 Essential (primary) hypertension; E78.5 Hyperlipidemia, unspecified; F41.8 Other specified anxiety disorders; Z79.899 Other long term (current) drug therapy
CPT/HCPCS: 70450; 80048; 80053; 80076; 81001; 84484; 85025; 85379; 85610; 93005; 93041; 96361; 96372; 96374; 96376; 99220; 99225; 99285; A0425; A0427; G0378; G8978; G8979; J1650; J2405; J2550; J7030